=== PATIENT | female | born 1990 | race Caucasian/White ===

== ENCOUNTER 2016-09-04 08:08 | Emergency (ER) | payer SELFPAY ==
[2016-09-04 08:31] VITALS: BP 127/84
--- NOTE | 2016-09-04 08:57 | ED Physician Documentation ---
Upper Extremity Problem - HISTORIAN Historian: patient - HPI Stated Complaint: left arm redness Chief Complaint: Upper Extremity Problem Additional Information: cellulitis lt forearm in tattoo done 2 days ago Timing: still present, worse Recent Injury: No Severity: mild, moderate Associated Symptoms: denies: fever, chills, difficulty breathing Quality: tenderness (also slight oozing this am - cloudy material;) - ROS CONST: no problems EYES/ENT: none CVS/RESP: none GI/: none - PAST HX Past History: other (hypo thryoid) Surgeries/Procedures: none Immunizations: UTD Allergies/Adverse Reactions: Allergies Allergy/AdvReac Type Severity Reaction Status Date / Time Penicillins Allergy Intermediate Hives Verified 09/04/16 08:22 Sulfa (Sulfonamide Allergy Mild Rash Verified 09/04/16 08:22 Antibiotics) [Sulfa(Sulfonamide Antibiotics)] Home Medications: Ambulatory Orders Medication Instructions Recorded Cephalexin [Keflex] 500 mg PO TID #30 capsule 09/04/16 - SOCIAL HX Smoking History: non-smoker Alcohol Use: none Drug Use: none - FAMILY HX Family History: no significant history - VITAL SIGNS Vital Signs: Vital Signs Temp Pulse Resp BP Pulse Ox 98.6 F 71 16 127/84 99 09/04/16 08:24 09/04/16 08:24 09/04/16 08:24 09/04/16 08:24 09/04/16 08:24 - REVIEWED ASSESSMENTS Nursing Assessment Reviewed: Yes Vitals Reviewed: Yes Upper Extremity Problem - EXAM General Appearance: mild distress Skin: warm/dry, normal color. No: cyanosis, diaphoresis Shoulder Exam: normal inspection Elbow/Forearm Exam: soft tissue tenderness (area tattoo flexor surface inc tattoo and slightly surrounding ) Peripheral: sensation nml, motor nml Central: oriented X3 Respiratory: no resp. distress, breath sounds nml Abdomen: non-tender Discharge Clincal Impression: cellulitis lt forearm area recent tottoo Prescriptions: Cephalexin [Keflex] 500 mg PO TID #30 capsule Referrals: Quita Mckeon FNP [Primary Care Provider] - 2 Days Home Medications: Ambulatory Orders Cephalexin [Keflex] 500 mg PO TID #30 capsule 09/04/16 Comments: to use liquid betadine area cellulitis topically-plus keflex. keep clean soap water Condition: Good Disposition: 01 HOME, SELF-CARE Decision to Admit: NO Decision Time: 08:56
== END 2016-09-04 08:50 | disposition home or self-care (01) ==
LOC: ED 08:08 → EDSTATUS 08:10 → ED 08:50
DX: L03.114 Cellulitis of left upper limb (principal)
CPT/HCPCS: 99283

== ENCOUNTER 2018-06-27 13:23 | Outpatient (CLI) | payer OTHER | END 2018-06-27 13:30 | LOC: LABRHC 13:23 | PROVIDERS: ATTEND Nurse Practitioner Family | DX: Z01.419 Encounter for gynecological examination (general) (routine) without abnormal findings (principal) | CPT/HCPCS: 87491; 87591; 87624; 88148; G0143 ==

== ENCOUNTER 2018-11-09 17:37 | Outpatient (CLI) | payer SELFPAY | END 2018-11-09 17:40 | LOC: LABRHC 17:37 | PROVIDERS: ATTEND Nurse Practitioner Family | DX: Z11.2 Encounter for screening for other bacterial diseases (principal) | CPT/HCPCS: 87070 ==

== ENCOUNTER 2019-02-23 10:07 | Outpatient (CLI) | payer BC | END 2019-02-23 10:12 | LOC: LAB 10:07 | PROVIDERS: ATTEND Nurse Practitioner Family | DX: N89.8 Other specified noninflammatory disorders of vagina (principal) | CPT/HCPCS: 86694 ==

== ENCOUNTER 2019-02-27 12:24 | Outpatient (CLI) | payer BC ==
--- NOTE | 2019-03-16 07:48 | CONSULTATION REPORT ---
DATE OF VISIT: 02/27/2019 CHIEF COMPLAINT: Cervicalgia. HISTORY OF PRESENT ILLNESS: Kellie is a 28-year-old female patient, here for initial evaluation for neck pain. Her symptoms started at age 16 and were sporadic, however, have worsened in the last 18 months. She describes a pain that starts at the occiput and the cervical area on the right side. The pain then worsens at the base of her skull and her neck. The patient feels a shivering type discomfort that goes down her spine and then travels back up. Most recently the patient was witnessed losing consciousness for less than five minutes. This has only occurred once where it was witnessed. The pain that travels up and down her spine can last for 5 to 15 minutes. Afterwards she has muscle pain primarily on the left side of her neck and back. The patient has not seen a neurologist in quite some time. She did when she was in her early 20s. However, she lost her insurance and was unable to proceed with the neurologic workup. The patient has not had any recent imaging. Her PCP has referred her to a neurologist, and she is scheduled in April to have her consultation with them. PAST MEDICAL HISTORY: The patient has anxiety, depression, and back pain. PAST SURGICAL HISTORY: None. SOCIAL HISTORY: Marital status, is single. 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 The patient is nulliparous. Tobacco use denies. ETOH denies. Recreational drug use denies. DRUG ALLERGIES: Penicillin/amoxicillin and the reaction is hives/trouble breathing. CURRENT MEDICATIONS: The patient is on amitriptyline 75 to 100 mg per day and cyclobenzaprine 5 to 10 mg p.r.n. FAMILY HISTORY: Father had cancer, CA and heart disease. Maternal grandmother had diabetes. Maternal grandfather had cancer. Paternal grandmother had diabetes and paternal grandfather had a heart disease and a heart attack. OBJECTIVE: General: This is a well-developed, well-nourished female patient presenting in no acute distress at the time of examination. Vital Signs: The patient is 5 feet 1 inch tall, weighs 219 pounds. Temperature is 98.5, pulse is 89, respiratory rate is 14, blood pressure 125/80 with an SaO2 of 99% on room air. She is rating her pain at 2/10 today. Psych: She is alert and oriented x3. She is calm, pleasant and cooperative. HEENT: She is normocephalic and atraumatic. PERRLA. Trachea is midline. There is no lymphadenopathy or thyromegaly. CV: Normal S1, S2. Regular rate and rhythm. No gallops, rubs, or murmurs. Pulmonary: Nonlabored respirations at rest. Lungs are clear to auscultation bilaterally and throughout. GI: Abdomen is soft, round, nondistended and nontender with bowel sounds present in all four quadrants. Musculoskeletal: The patient has full cervical range of motion. She has tenderness to palpation at the C2-C3, C3-C4. The patient has tenderness to palpation over the greater and lesser occipital nerves, more on the right side. Upper extremity strength is equal and strong in all areas graded 5/5 bilaterally in triceps, biceps, wrist flexion, wrist extension, finger abduction, and finger adduction. [employer] Search [employer]st are equal and strong bilaterally. Sensation to light touch is intact bilateral upper extremities. Deep tendon reflexes are 2+ throughout bilateral upper extremities. There are no obvious deformities on inspection of the cervical, thoracic or lumbar spine. Neurologic: Cranial nerves II through XII are grossly intact. There are no focal deficits. The patient walks with a steady gait. Speech is clear. ASSESSMENT: 1. Cervicalgia. 2. Seizure like activity with loss of consciousness. 3. Headaches. PLAN: 1. I am going to defer any treatment at this time pending her neurologic workup. Once this is complete the patient is to return and is also to bring records of any imaging that they have done and recommendations for treatment. I did collaborate with Dr. Egan regarding this and he agrees. 2. We will follow the patient up once the neurological consultation and work up is complete and then consider treatment options at that time. The patient did verbalize understanding and agrees to the current treatment plan. MARY Rodríguezurse Practitioner /[employer] [id number] jrhiram cc: PIO Hawkins
== END 2019-02-27 13:24 ==
LOC: OUT 12:24
PROVIDERS: ATTEND Nurse Practitioner Adult Health
DX: M54.2 Cervicalgia (principal); R51 Headache; R55 Syncope and collapse
CPT/HCPCS: 99203